=== PATIENT | female | born 1975 | race Caucasian/White ===

== ENCOUNTER 2025-05-08 06:29 | Inpatient (IN) | payer MEDICARE, OTHER, SELFPAY ==
[2025-05-07 23:30] VITALS: BP 181/106; BMI 22.1
[2025-05-07 23:35] VITALS: BP 181/106
[2025-05-07 23:39] VITALS: BP 201/159
[2025-05-07 23:41] VITALS: BP 169/113
[2025-05-07 23:56] LABS: Hematocrit 37.5 % (37.0-47.0); Hemoglobin 13.2 g/dL (12.0-16.0); Mean Corp Hgb Conc. 35.2 g/dL (33.0-37.0); Mean Corpuscular Volume 79.8 fL (81.0-99.0); Nucleated Red Blood Cells % 0 %; Platelet Count 342 10^3/uL (130-400); Red Cell Dist. Width 13.6 % (11.5-14.5)
[2025-05-08] VITALS (45 sets, daily range): BP systolic 134–196; BP diastolic 67–149; BMI 23.6
[2025-05-08 00:12] LABS: Blood Urea Nitrogen 8 mg/dl (7-17); Calcium 9.7 mg/dl (8.4-10.2); Carbon Dioxide 23 mmol/L (22-30); Chloride 103 mmol/L (98-107); Estimated Creatinine Clearance 82 ml/min; Glucose 162 mg/dl (70-99); Potassium 3.3 mmol/L (3.5-5.1); Sodium 137 mmol/L (135-145); eGFR > 60.00
[2025-05-08] MEDS: NSS 1000 IV (00:41)
--- NOTE | 2025-05-08 01:30 | EDRN ---
Went in to try to get urine specimen from patient, she said she could go, while getting her ready to provide sample she appeared wet, when asked if she went already she stated yes but she could go again, patient placed on bed rivera, then yelled that
she couldn't go, patient was taken off of wet things and given new linen, aware if she needs to urinate again, we need a sample
--- NOTE | 2025-05-08 02:30 | EDRN ---
Staff from [facility] came out of room stating patient seizing, when entering room, patient is having tonic clonic seizure, patient airway suctioned, patient's vitals are stable, however patient is postictal at this time, verbal order to give 5mg Valium
IV. Patient was incontinent to urine, patient was changed at this time, patient was straight cathed to obtain a urine specimen as well at this time, will continue to monitor.
[2025-05-08] MEDS: VALIUM INJECTION 5 MG IV ×2 (02:39→04:05)
--- NOTE | 2025-05-08 03:38 | ED.GENMED ---
History of Present Illness
General
Chief Complaint: Withdrawal Symptoms
Source: patient
Exam Limitations: none
Time Seen by Provider: 05/07/25 23:34
Nursing documentation reviewed up to this point in time: agreed with
History of Present Illness
History of Present Illness:
Note:
CHIEF COMPLAINT(S)
The patient was noted to be disoriented and vomiting earlier in the day. Patient is a resident of [facility]. She has been there for about a day. She admits to using opioids 1 day ago.
HISTORY OF PRESENT ILLNESS
The patient is a 49-year-old female who was brought in after being found disoriented and vomiting. She was noted to have an altered mental state, described as being unaware of her surroundings and staring blankly. The episode of disorientation
reportedly resolved approximately 10 minutes after onset. Earlier in the day, the patient experienced episodes of vomiting. There is a mention of a possible withdrawal state, as the patient appears to have history involving opioid use. The patient
denied any recent fall or head injury and reports feeling normal post episode.
SOCIAL DETERMINANTS AFFECTING HEALTH
The patient has a history of opioid use, which may be impacting her current health status.
MEDICATIONS
The patient is on opioids, though specific details on dosages and additional medications are not provided.
PROBLEM LIST
- Acute: Disorientation, vomiting
- Chronic: Opioid use disorder
DIFFERENTIAL DIAGNOSIS
The Differential Diagnosis includes, in no particular order and is not limited to:
1. Opioid withdrawal
2. Opioid intoxication
3. Dehydration
4. Electrolyte imbalance
5. Infectious cause (e.g., gastroenteritis)
6. Metabolic disturbance
7. Central nervous system event (e.g., seizure, transient ischemic attack)
8. Medication side effect
9. Anxiety or panic attack
10. Alcohol withdrawal
CARE-UPDATE
05/08/25 - 03:39
The patient experienced a seizure episode. Administered an additional dose of Valium as per protocol.
Disposition:
SUMMARY OF ENCOUNTER
The patient, a 49-year-old female, was brought to the emergency department from a correctional facility presenting with symptoms suggestive of opioid withdrawal. During her stay, she experienced two separate seizures. The seizures were temporarily
controlled with diazepam. An emergency CT scan of the head was conducted, and no acute intracranial process was identified. Additionally, an electroencephalogram (EEG) was performed, which did not show any seizure activity. Due to her current
symptoms and the development of new-onset seizures, the decision was made to admit the patient for further observation and management.
DISPOSITION
Admit.
ASSESSMENT
The patient is experiencing symptoms consistent with acute opioid withdrawal and new-onset seizures.
EMERGENCY TREATMENTS ADMINISTERED
Diazepam (Valium) was administered to control seizures.
INDEPENDENT REVIEW OF LABS AND INTERPRETATION OF TESTS
My independent interpretation of the CT scan of the head shows no acute intracranial process.
MEDICAL DECISION MAKING
-Complexity of Data Reviewed: Chronic conditions affecting care include the patients known opioid use disorder. Differential diagnosis considerations included opioid withdrawal, opioid intoxication, electrolyte imbalance, and central nervous system
event (e.g., seizure).
-Data:
Category 1: I independently reviewed the CT scan of the head.
Category 2: None discussed.
Category 3: None discussed.
-Risk: The patients presentation with seizures and history of opioid use indicate a high risk of complications, necessitating admission for monitoring and further management.
DIAGNOSIS
- Opioid withdrawal (ICD-10: F11.23)
- Seizures, unspecified (ICD-10: R56.9)
Phy Exam
General Physical Exam
General Presentation: moderate distress
General age: appears older than age
General Skin: warm and dry
General Habitus: debilitated, frail and poor hygiene
General Mental: appears intoxicated and confused
General Hydration: appears well hydrated
ENT Exam
ENT Exam: EOMI, pharynx normal, neck supple and normocephalic
Eye Exam
Eye Exam: PERRL, cornea clear and conjunctiva normal
Cardiovascular Exam
Cardiovascular Exam: regular rate/rhythm and no edema
Pulmonary Exam
Pulmonary Exam: no respiratory distress and no stridor
Gastrointestinal Exam
Gastrointestinal Exam: normal bowel sounds, non tender, soft, no organomegaly, no pulsatile mass and non distended
Neurological Exam
Neurological Exam: confused
Musculoskeletal Exam
Musculoskeletal Exam: full ROM
Skin Exam
Skin Exam: normal color, warm/dry, no rash and no petechia
Psychiatric Exam
Psychiatric Exam: anxious and labile
Course
Orders/Labs/Results
Orders:
Orders
05/07/25 23:38
Electrocardiogram (*1) Urgent
Reason for Study: Other
Other Reason for Exam: change in mental status
EKG- Treatment ONCE
05/07/25 23:39
Basic Metabolic Panel Urgent
Complete Blood Count/With Diff Urgent
05/07/25 23:47
Urine Drug Abuse Screen Urgent
Date Specimen was Collected: 05/08/25
Time Specimen was Collected: 00:38
05/08/25 00:30
0.9% Sodium Chloride 1000 ml [Nss] 1,000 ml IV BOLUS
05/08/25 00:56
CT Head W/o Iv Contrast Urgent
Comment:
Reason For Exam: ams
05/08/25 02:26
diazePAM [Valium Injection] 10 mg .ROUTE .STK-MED ONE
05/08/25 02:38
Fentanyl, Urine Urgent
05/08/25 02:39
diazePAM [Valium Injection] 5 mg IV NOW STA
05/08/25 03:35
diazePAM [Valium Injection] 5 mg IV NOW STA
05/08/25 03:38
Ceribell [Rapid Point of Care EEG (ED/ICU ONLY)] Q1H
Indications for use:: Altered Mental Status
05/08/25 03:40
diazePAM [Valium Injection] 10 mg .ROUTE .STK-MED ONE
Abnormal Lab Results
05/07/25 05/08/25
23:39 02:38
MCV 79.8 L fL
(81.0-99.0)
Abs Immat Gran (auto) 0.1 H 10^3/uL
(0-0.05)
Absolute Neuts (auto) 9.3 H 10^3/uL
(1.4-6.5)
Absolute Lymphs (auto) 1.1 L 10^3/uL
(1.2-3.4)
Neutrophils % 86.7 H %
(42.2-75.2)
Lymphocytes % 10.0 L %
(20.5-51.1)
Potassium 3.3 L mmol/L
(3.5-5.1)
Glucose 162 H mg/dl
(70-99)
Urine Fentanyl Screen Positive H
(Negative)
Urine Cocaine Screen Positive H
(Negative)
05/07/25 23:39
05/07/25 23:39
Vital Signs
Initial and Last Documented VS:
Initial Vital Signs
Temp Pulse Resp BP Pulse Ox
98.3 F 51 14 181/106 99
05/07/25 23:30 05/07/25 23:30 05/07/25 23:30 05/07/25 23:30 05/07/25 23:30
Last Documented Vital Signs
Temp Pulse Resp BP Pulse Ox
98.3 F 77 19 187/93 98
05/07/25 23:30 05/08/25 00:30 05/08/25 00:30 05/08/25 00:00 05/08/25 03:39
*Radiology
Radiology exam reviewed: radiology read reviewed
*Pulse Oximetry
SaO2: 98
Oxygen Mode of Delivery: Room air
Patient hypoxic: no
*Critical Care Note
Total Time (30-74mins, 75-104mins- exclusive of procedures): 45 (Critical care statement: A total of 45 minutes of critical care time was provided for this patient. This time is separate from time utilized to perform the aforementioned documented
procedures. Aggregate critical care time includes only time during which I was engaged in work directl)
Update Note
Update Note:
NAME: BRET GARZA
DATE OF EXAM: 05/08/2025
Patient No: [id number]
Physician: MIK^Estephania
Date of : 1975
Past Medical History (entered by Technologist):
Reason For Exam (entered by Technologist):
Other Notes (entered by Technologist): Altered mental status
No prior
Additional Information (per [facility] Radiologist):
CT head without IV contrast
IMPRESSION:
No hemorrhage, hydrocephalus, or herniation. Consider MRI for further assessment if clinically indicated.
Right-sided paranasal sinus disease.
Case finalized on 05/08/25 04:42 EDT
Jeff Urena M.D.
This report has been electronically signed and verified by the Radiologist whose name is printed above.
ED Attending Note
-
Portions of this chart may have been created with voice recognition software.� Occasional wrong word or��sound alike� substitutions may have occurred due to the inherent limitations of voice recognition software.
Discharge Plan
Departure
Patient Disposition: Admit
Date of Disposition: 05/08/25
Time of Disposition: 04:55
Admit to: IMU
Presentation/result/management discussed w/ accepting MD/DO: Hospitalist
Condition: Fair
Discharge Problem:
Seizure, Opioid abuse with withdrawal
Referrals:
[facility] [Family Provider, General]
Interventions
Interventions:
*Risk Screen - Suicide Last Done: 05/07/25 23:30
*General Assessment Last Done: 05/07/25 23:30
*Neglect/Abuse Screening Last Done: 05/07/25 23:30
*ED- Fall Risk Assessment Last Done: 05/07/25 23:30
*ED Influenza Vaccine History Last Done: 05/07/25 23:30
ED- Neurological Assessment Last Done: 05/08/25 00:31
ED-Psychological Assessment Last Done: 05/08/25 00:31
Discharge Date and Time
Print Language: TELUGU
[2025-05-08 05:29] LABS: Acetaminophen < 10 ug/ml (10-30); Salicylate < 1.0 mg/dl (2.0-20.0)
--- NOTE | 2025-05-08 06:04 | HPS.HSE ---
Family Physician
-
Family Physician: Facility [facility]
Chief Complaint
-
Altered Mental Status, Seizure
History of Present Illness
Patient is a 49y F with PMH significant for substance use disorder who presents [facility] ED from local [facility] for evaluation of altered mental status. Patient was incarcerated early Friday AM. She complained of nausea and was treated with a dose of
IM Zofran. She was described as agitated and anxious at he [facility]. Patient was found this evening to be confused, disoriented with N/V. She as brought to the ED for further evaluation.
During eval in the ED, patient had witnessed episode of tonic-clonic seizure activity. She was treated with Valium with improvement.
She has continued to have some 'twitching' or fasciculations since that time. Ceribell was placed which showed no evidence of seizure activity after 1 hour.
At the time of my examination patient remains lethargic. She responds to verbal and noxious stim. She attempts to answer questions with soft / slurred speech.
patient admits to using 2 bags of heroin / fentanyl per day. last use was Friday. She denies any cocaine use though this was seen on UDS.
She denies alcohol - though prior [facility] records (from previous incarcerations) indicate significant history of alcohol use as well.
Patient denies any prior seizures.
Medical History
Past Medical History
Past Medical History: Reports Other
Additional Past Medical History:
Polysubstance Use Disorder
Past Surgical History: Reports Other
Additional Past Surgical History:
None Known
Social History
Tobacco: Smoker
Alcohol: Other (Patient denies - though prior records suggest up to 12 beers daily.)
Drug: Other (Daily IV fentanyl / heroin use.)
Family History
Family History: Unable to Obtain
Allergies / Home Medications
Allergies reflects when Allergies were last updated in [employer].
Home Medications with original date entered in [employer]
Allergy/Medication List:
On no chronic medications.
If medication reconciliation has not been performed, why?: Medication List N/A
Review of Systems
-
History Source: Patient (limited ROS due to lethargy.)
A 12 point ROS was completed and negative except as noted: No
Respiratory: Denies Cough or Trouble Breathing
Cardiac: Denies Chest Pain or Palpitations
Abdomen/GI: Reports Nausea and Vomiting; Denies Abdominal Pain
Neurological: Denies Dizzy or Headache
Physical Exam
Vital Signs
Vital Signs
Temp Pulse Resp BP Pulse Ox
98.3 F 77 19 187/93 98
05/07/25 23:30 05/08/25 00:30 05/08/25 00:30 05/08/25 00:00 05/08/25 03:39
Physical Exam
General: Other (Chronically ill-appearing 49y F who appears older than stated age.)
HEENT: Other (Dry MM, poor / missing dentition. Neck supple.)
Respiratory: Clear; No Wheezes, Rales or Rhonchi
Cardiac: S1/S2, Regular Rhythm and Murmur (III/ DELFINO to RUSB.)
GI: Soft, Non Tender, Non Distended and Normal Bowel Sounds
Musculoskeletal: No Clubbing, No Cyanosis and No Edema
Skin: Other (Chronic scarring / skin changes x 4 extremities from IV injection sites / prior infections / etc.)
Neuro: Other (Lethargic, mildly tremulous. Responds to loud verbal stimuli and noxious stimuli.)
Laboratory Results
-
05/07/25 23:39
05/07/25 23:39
Impression/Plan
-
A/P: Patient is a 49y F with PMH significant for polysubstance use disorder who presents to ED from [facility] for evaluation of N/V and altered mental status. Noted to have seizure here in the ED.
Polysubstance Use Disorder
Withdrawal Syndrome(s)
Seizure Activity (witnessed) secondary to the above
- Admit to ICU for further evaluation and treatment.
- Given apparent seizure activity and previously documented history of EtOH use disorder - will proceed with EtOH withdrawal protocols.
- Phenobarb taper, Valium as needed for MSAS scores, seizure activity, etc.
- CT head in the ED was unremarkable.
- Follow COWS as well and treat any evident withdrawal symptoms with buprenorphine.
- UDS in the ED was positive for fentanyl and cocaine (though patient denies cocaine use as well). EtOH was negative.
- Supportive care with IVFs, antiemetics, etc.
- Kiss Setter Hand evaluation for additional recommendations.
- Encourage cessation of illicit substance use.
Ventricular Bigeminy
Prolonged QTc
- Patient with bigeminy on EKG on arrival - no prior tracings for comparison.
- QTC prolonged at 505. Received Zofran at [facility] prior to arrival.
- Monitor on tele. Avoid QT prolonging medications.
Murmur
- Check Echo given cardiac murmur and history of IVDA.
DVT Prophylaxis: SCDs
Code Status: Full
--- NOTE | 2025-05-08 06:45 | CON.INTV ---
Consultation
Consultation Request
Date/Time Consultation Requested: 05/08/2025
Date/Time Consultation Performed: 05/08/2025
Medical History
-
Chief Complaint: Altered mental status
History of Present Illness:
Patient is a 49-year-old female was brought from [facility] for altered mental status and vomiting. Patient is lethargic during my evaluation and unable to provide a reliable history. Information mostly obtained from records as well as discussion with
other healthcare providers. Reportedly patient was brought in as she was found confused and was having vomiting. Reported history of opioid use with recent incarceration with concern for withdrawal symptoms. In the emergency room, patient had a
witnessed tonic-clonic seizure which was treated with Valium and subsequently improvement. Cerebella was placed which was not suggestive of ongoing seizure activity. Subsequently patient was lethargic with slurred speech. Reported history of 2
bags of heroin/fentanyl use daily. Prior history of alcohol also however per most recent alcohol screen has been negative. Urine tox and also positive for cocaine. In view of altered mental status, severe withdrawal and seizure, patient is being
admitted to the ICU and grappler consultation was requested for further input.
Past Medical History
Past Medical History: Reports Other
Additional Past Medical History:
Polysubstance Use Disorder
Past Surgical History: Reports Other
Additional Past Surgical History:
None Known
Social History
Tobacco: Smoker
Alcohol: Other (Patient denies - though prior records suggest up to 12 beers daily.)
Drug: Other (Daily IV fentanyl / heroin use.)
Family History
Family History: Unable to Obtain
Allergies / Home Medications
Allergies
Allergy/AdvReac Type Severity Reaction Status Date / Time
No Known Allergies Allergy Unverified 05/07/25 23:38
Review of Systems
-
Unable to Obtain full review of systems at this time due to: Other (Unable to obtain due to encephalopathy)
Vitals / Labs / Diagnostic Testing
Vital Signs
Temp Pulse Resp BP Pulse Ox
98.3 F 107 30 179/110 97
05/07/25 23:30 05/08/25 06:15 05/08/25 06:15 05/08/25 05:53 05/08/25 06:15
Lab Data
05/07/25 23:39
05/07/25 23:39
Diagnostic Testing:
Physical Exam
-
HEENT: Normocephalic
Cardiovascular: S1/S2
Respiratory: Clear and Non-Labored Respirations
GI: Soft and Non Distended
Neurology: Other (Drowsy, wakes up with stimulation, protecting airways)
Skin: Warm
General: Comfortable
Assessment
-
#1. Polysubstance use with severe withdrawal
- Patient noted to have tonic-clonic activity in the emergency room, suspect withdrawal related seizures
- Reported history of heroin use, urine tox also positive for cocaine. Prior history of alcoholism.
- Continue thiamine replacement. Remote h/o alcoholism, patient denies current use, alcohol screen negative, will d/c Phenobarbital/MSAS
- CT head unremarkable. Portable EEG in the emergency room was not suggestive of nonconvulsive seizure.
- Initiate buprenorphine when able to take, as needed IV fentanyl in the meantime. Avoid beta-blockers in view of urine tox positive for cocaine
- Continue IV fluids, monitor and replace electrolytes
- Precedex infusion as needed
- If mental status worsens or patient develops additional seizure, will need to proceed with intubation and mechanical ventilation
- Monitor renal function. Check VBG and CK.
- More awake, protecting airways well, still encephalopathy, suspect related to withdrawal as well as postictal state.
#2. QTc prolonged.
- Replace low K and Mg, f/u lab work
- Serial EKG. Tele monitoring
#3. Fever.
- Blood cultures x 2, chest x-ray, UA
- Monitor off antibiotics for now
Critical Care time 65 mins -- The patient is admitted for acute critical illness for the treatment of vital organ failure and/or prevention of further life-threatening conditions. Total care includes time spent in review of history, physical exam,
medications, hemodynamic/ventilator parameters, laboratory data, imaging and discussion with house staff, pharmacy, respiratory therapy, safety and security manager, and nursing.
Data:
CT Head: 04/2025: No acute intracranial abnormality.
CXR 04/2025: Unremarkable
[2025-05-08] MEDS: TRANDATE 10 MG IV (06:56)
--- NOTE | 2025-05-08 07:05 | EDRN ---
Spoke with Dr. Ledezma about patient's blood pressure continuing to stay elevated, medications ordered and given for patient.
[2025-05-08] MEDS: APRESOLINE 10 MG IV ×2 (07:14→13:53)
[2025-05-08 07:22] LABS: Magnesium 1.5 mg/dl (1.6-2.3)
[2025-05-08 07:55] LABS: Glucose - Point of Care 145 mg/dl (70-99)
[2025-05-08] MEDS: FOLVITE PO (08:15)
[2025-05-08] MEDS: PROTONIX IV 40 MG IV (08:18)
[2025-05-08] MEDS: LR 1000 IV ×3 (08:18→21:28)
[2025-05-08] MEDS: KCL 270 MEQ IV (08:18)
[2025-05-08] MEDS: MAGNESIUM SULFATE 50 IV (08:18)
[2025-05-08] MEDS: NSS (PRESERVATIVE FREE) 10 ML IV (08:18)
[2025-05-08 08:27] LABS: APTT 31.2 Sec (23.4-35.0); INR 0.99; PT 13.4 Sec (11.4-14.6)
[2025-05-08] MEDS: THIAMINE INJECTION 200 MG IV ×3 (08:27→23:51)
[2025-05-08 08:29] LABS: Magnesium 1.6 mg/dl (1.6-2.3)
--- NOTE | 2025-05-08 09:30 | PTCARENOTE ---
Received pt from ER into ICU rm 3365 @ approx 0800. pt. max assisted from stretcher to bed. Pt. lethargic, awakens to verbal stimuli; tracks. Does not follow commands but able to move all extremities; denies pain. Oriented to self/situation;
required reorientation to place/time. COWS-6; relayed to Dr. Shields; MSAS cancelled per MD. Neuro checks completed per orders- see flow sheet; seizure precautions maintained. Cerebell off per orders. ST on monitor w prolonged QT. SpO2 98% on RA.
Auscultated dim breath sounds throughout; poor effort; tachypneic. +BS, NPO d/t mentation. Inc b/b @ x's. Compete hygiene given. L knee scabbed- REGIONAL OPERATIONS DIRECTOR. Pt. w healed dent-like skin patches. #20 L FA patent, dressing c/d/i. #20 L wrist inserted.
Initiated LR @ 150mL/hr w K+ and Mag repletion- see SEP. Blood work drawn and sent to lab; awaiting results. CXR completed @ bedside. L ankle chained to bed per correctional policy; [facility] guards x2 @ bedside.
--- NOTE | 2025-05-08 09:47 | W.PN.HOSP.TC ---
Today's Communication/Plan
-
Continue WD protocol. K low, check and replete as needed. Check Mg
Assessment / Plan
Assessment / Plan
49y F with PMH significant for polysubstance use disorder who presents to ED from [facility] for evaluation of N/V and altered mental status. Noted to have seizure here in the ED.
1. Polysubstance Use Disorder with Withdrawal Syndrome(s) and Seizure Activity (witnessed) secondary to the above
- Given apparent seizure activity and previously documented history of EtOH use disorder - will proceed with EtOH withdrawal protocols.
- Phenobarb taper, Valium as needed for MSAS scores, seizure activity, etc.
- CT head in the ED was unremarkable.
- Follow COWS as well and treat any evident withdrawal symptoms with buprenorphine.
- UDS in the ED was positive for fentanyl and cocaine (though patient denies cocaine use as well). EtOH was negative.
- Supportive care with IVFs, antiemetics, etc.
- Training And Development Head evaluation for additional recommendations.
- Encourage cessation of illicit substance use.
2. Ventricular Bigeminy with Prolonged QTc
- Patient with bigeminy on EKG on arrival - no prior tracings for comparison.
- QTC prolonged at 505. Received Zofran at [facility] prior to arrival.
- Monitor on tele.
Avoid QT prolonging medications.
3. Murmur
- Check Echo given cardiac murmur and history of IVDA.
DVT Prophylaxis: SCDs
Code Status: Full
Anticipated Discharge: > 48 hours
Subjective/Interval History
-
Date of Service: May 08, 2025
Confused and sedated
Objective Data
-
Labs:
Laboratory Results
05/07/25 05/08/25
23:39 07:59
WBC 10.8
Hgb 13.2
Hct 37.5
Plt Count 342
PT 13.4
INR 0.99
APTT 31.2
Sodium 137
Potassium 3.3 L
Chloride 103
Carbon Dioxide 23
BUN 8
Creatinine 0.6
Glucose 162 H
Calcium 9.7
Vital Signs:
Vital Signs
Temp Pulse Resp BP Pulse Ox
98 F 117 28 165/112 98
05/08/25 07:47 05/08/25 09:30 05/08/25 09:30 05/08/25 09:30 05/08/25 09:30
I&O
05/07/25 05/08/25 05/09/25
06:59 06:59 06:59
Intake Total 485.0 / 485.0
Balance 485.0 / 485.0
Review of Systems
-
Unable to obtain full review of systems at this time due to: Acuity
History Source: Patient
Physical Exam
-
General: Well Developed, Well Nourished, No Apparent Distress and Appears Chronically Ill
HEENT: Normocephalic, Nose Appears Normal and Ears Appear Normal; Negative Good Dentition
Respiratory: Clear to Auscultation
Cardiac: Tachycardic
GI: Soft, Nontender and Nondistended
Musculoskeletal: No Clubbing, No Cyanosis and No Edema
Skin: Warm and Dry
Neuro: Negative Awake, Alert, Oriented or AO x 3
Psych: Confused
--- NOTE | 2025-05-08 10:19 | CM ---
CM reviewed chart. Attempted to meet with pt at bedside to complete IA. Pt noted to be confused and lethargic.
Spoke with [facility] staff and RN. Pt was Iw/AMB and oriented prior to admit to hospital.
PMH of substance abuse w/last use Sunday 05/06.
Presented from [facility] for change in mental status, confusion, disorientation, N/V on Monday 05/07.
Pt with witnessed tonic-clonic seizure in ER treated w/valium w/improvement.
Dispo: Return to [facility] when medically stable. They will provide transport.
Two CO's remain at bedside.
CM/SW will continue to follow to ensure a safe and timely dc.
[2025-05-08] MEDS: SUBUTEX 8 MG SL ×2 (12:12→13:53)
--- NOTE | 2025-05-08 12:22 | PTCARENOTE ---
pt. more awake than on admit. Remains drowsy, opens eyes to verbal stim; follows simple commands and able to move all extrem. COWS Q4h per orders- see flow sheet/MAR. Assisted w active repositioning in bed. L ankle remains shackled to bed w [facility]
guards @ bedside. Safe environment maintained.
[2025-05-08 12:23] LABS: Venous Blood Gas B.E. 2.2 mmol/L (-4 to +4); Venous Blood Gas O2 Sat % 99.7 %
[2025-05-08 12:36] LABS: ALT (SGPT) 13 U/L (0-35); AST (SGOT) 20 U/L (14-36); Albumin 4.7 g/dl (3.5-5.0); Alkaline Phosphatase 113 U/L (38-126); Total Protein 8.3 g/dl (6.3-8.2)
[2025-05-08] MEDS: ZANAFLEX 2 MG PO ×2 (14:18→20:16)
[2025-05-08] MEDS: CATAPRES 0.1 MG PO (16:11)
[2025-05-08] MEDS: LOVENOX 40 MG SC (17:18)
--- NOTE | 2025-05-08 18:36 | PTCARENOTE ---
No changes in pt. assessment from previous. COWS completed per orders- see flow sheet/MAR. Safe environment maintained.
--- NOTE | 2025-05-08 18:38 | W.RAPID.EEG ---
Rapid EEG
-
Procedure Date: 05/08/25
Results:
IMPRESSION:
No evidence of status epilepticus
Recording Information:
Diagnostic Recording Time: 01:14:05 (74 minutes)
Recording 1:
Start Time: May 08, 2025 04:00 AM End Time: May 08, 2025 05:14 AM
Recording Technique: This EEG was obtained using a 10 lead, 8 channel system positioned circumferentially without any parasagittal coverage (rapid EEG). Computer selected EEG is reviewed as well as background features and all clinically significant
events. Clarity algorithm utilized and implemented to provide analysis of underlying activity and seizure detection used to facilitate reading. ICD-10 Code GH67A13
Clinical History: BRET GARZA is a 49 year old Prior Seizure patient undergoing EEG to screen for non-convulsive status epilepticus.
Disclaimer: EEG findings should be interpreted in the context of clinical history and other tests. A normal EEG does not rule out epilepsy or other conditions, and an abnormal EEG is not diagnostic on its own. Technical factors may affect
interpretation. Clinical context is required.
--- NOTE | 2025-05-08 20:00 | PTCARENOTE ---
Patient received in bed, drowsy but arousable,oriented x2. CORMIER, pupils equal and reactive. Sinus tachycardia with pQT on monitor, afebrile, blood pressure as documented. weak but palpable pulses noted, trace lower extremity edema noted. Lungs
diminished, pulse ox 98% on room air. Abdomen soft non tender. Purewick draining cloudy yellow urine. #20 g in LFA with IVF infusing as ordered, #20 g in left wrist flushed and patent. Old scars noted, left knee with scab, Foam dressings applied
on left ankle due to shackle. 2 guards at bedside. Seizure precautions maintained
[2025-05-09] VITALS (18 sets, daily range): BP systolic 106–175; BP diastolic 71–125; PULSE 94; O2SAT 98; BMI 23.5
[2025-05-09] MEDS: APRESOLINE 10 MG IV (00:08)
--- NOTE | 2025-05-09 00:15 | PTCARENOTE ---
patient reassessed, remains calm and cooperative. prn apresoline given for blood pressure. no other changes in assessment
[2025-05-09] MEDS: ZANAFLEX 2 MG PO (02:49)
[2025-05-09] MEDS: LR 1000 IV ×2 (03:34→09:43)
[2025-05-09 05:01] LABS: ALT (SGPT) 12 U/L (0-35); AST (SGOT) 32 U/L (14-36); Albumin 4.1 g/dl (3.5-5.0); Alkaline Phosphatase 96 U/L (38-126); Blood Urea Nitrogen 9 mg/dl (7-17); Calcium 9.4 mg/dl (8.4-10.2); Carbon Dioxide 20 mmol/L (22-30); Chloride 108 mmol/L (98-107); Estimated Creatinine Clearance 82 ml/min; Glucose 117 mg/dl (70-99); Magnesium 2.3 mg/dl (1.6-2.3); Potassium 3.5 mmol/L (3.5-5.1); Sodium 135 mmol/L (135-145); Total Protein 7.7 g/dl (6.3-8.2); eGFR > 60.00
[2025-05-09] MEDS: KCL 270 MEQ IV (06:12)
[2025-05-09] MEDS: FOLVITE 1 MG PO (07:35)
[2025-05-09] MEDS: MIRALAX 17 GRAMS TUBE (07:35)
[2025-05-09] MEDS: THIAMINE INJECTION 200 MG IV ×2 (07:36→15:12)
[2025-05-09] MEDS: NSS (PRESERVATIVE FREE) 10 ML IV (07:36)
[2025-05-09] MEDS: PROTONIX IV 40 MG IV (07:36)
--- NOTE | 2025-05-09 08:00 | PTCARENOTE ---
Received pt @ change of shift. Pt. drowsy, awakens to verbal stim; oriented x3; forgetful on exact date but was able to provide month/year. COWS completed per orders- see flow sheet. ST on monitor w prolonged QT. SpO2 98% on RA. +BS, abd soft, nt;
int nausea, no vomiting. NPO ex meds/sips; tolerating; no s/s of asp. Inc b/b. Purewick in place draining cloudy/yellow urine. #20 L FA w LR @ 150mL/hr w K+ rider infusing; #20 L wrist patent, dressing c/d/i. Blood work drawn and sent to lab;
awaiting results. [facility] guards x2 remain @ bedside. L ankle shackled to bed. Safe environment maintained.
[2025-05-09 08:01] LABS: Hematocrit 37.7 % (37.0-47.0); Hemoglobin 13.0 g/dL (12.0-16.0); Mean Corp Hgb Conc. 34.5 g/dL (33.0-37.0); Mean Corpuscular Volume 82.1 fL (81.0-99.0); Platelet Count 302 10^3/uL (130-400); Red Cell Dist. Width 14.2 % (11.5-14.5)
--- NOTE | 2025-05-09 08:14 | W.PN.INTV ---
Today's Communication / Plan
Recommendations
Precedex drip never started
Monitor off antibiotics and follow-up infectious workup (which shows NGTD)
Trend WBC
Monitor BP + HR
Try to avoid beta-blockers if possible given cocaine positive on urine toxicology
Continue microdosing Subutex
Supportive medications via COWS
Patient is stable for downgrade out of ICU to telemetry. No additional recommendations at this time. Custody Assistant/Pulmonary service will now sign off. Please reconsult if there are any additional questions/concerns, or if patient's respiratory
status deteriorates.
Assessment
-
#1. Polysubstance use with severe withdrawal
- Patient noted to have tonic-clonic activity in the emergency room, suspect withdrawal related seizures
- Reported history of heroin use, urine tox also positive for cocaine. Prior history of alcoholism.
- Continue thiamine replacement. Remote h/o alcoholism, patient denies current use, alcohol screen negative, will d/c Phenobarbital/MSAS
- CT head unremarkable. Portable EEG in the emergency room was not suggestive of nonconvulsive seizure.
- Continue microdose protocol with buprenorphine; Avoid beta-blockers if possible in view of urine tox positive for cocaine
- Will DC IVF today as patient is now okay to start diet; monitor and replace electrolytes
- Precedex infusion never started, will DC now
- Monitor renal function. Blood gas showed mild respiratory alkalosis; CK was WNL at 51
- Today, patient is awake, alert and answering all questions
#2. QTc prolonged.
- Replete K>4, Mg>2
- Tele monitoring
#3. Fever.
- Blood cultures x 2 show NGTD
- UCx shows NGTD
- No WBC; no fever since morning of 05/08
- Monitor off antibiotics for now
Patient is stable for downgrade out of ICU to telemetry. No additional recommendations at this time. Custody Assistant/Pulmonary service will now sign off. Thank you for allowing us to be involved in the care of this patient. Please reconsult if there
are any additional questions/concerns, or if patient's respiratory status deteriorates.
Data:
CT Head: 04/2025: No acute intracranial abnormality.
CXR 04/2025: Unremarkable
Total time spent today was 56 minutes for this encounter. Time includes reviewing laboratory test/imaging results, reviewing pertinent medical records, obtaining and reviewing medical history, performing an appropriate exam, ordering medications,
tests and procedures. Time also includes documentation of this encounter, coordinating patient care and communicating with other healthcare professionals. Total time does not include separately billed tests performed on this date of service.
Subjective Dataa
Subjective Data
Date of Service:
Date of Service: May 09, 2025
Chief Complaint: Custody Assistant Follow Up
Subjective:
Patient was seen and evaluated this morning. Precedex was not started overnight. Resting in bed in no acute distress with patrol police sergeant at bedside. Awake, alert in no acute distress. Heart rate 105, BP 158/107 and saturating 99% on room air.
She currently denies tremor, nausea, abdominal pain, chest pain, SOB.
Review of Systems
General: Other (Negative unless mentioned above)
Objective Data
Data Reviewed
Vital Signs / I&O / Oxygen:
Vital Signs
Temp Pulse Resp BP Pulse Ox
98 F 101 17 158/108 100
05/09/25 07:31 05/09/25 07:00 05/09/25 07:00 05/09/25 07:00 05/09/25 07:55
Intake and Output
05/08/25 05/09/25 05/10/25
06:59 06:59 06:59
Intake Total 4040.0 / 4190.0 540 / 540
Output Total 1000 / 1000
Balance 3040.0 / 3190.0 540 / 540
SaO2 100
Physical Exam
General: Respiratory Distress (negative), Comfortable, Chills (negative) and Sweats (negative)
HEENT: Normocephalic and Anicteric
Cardiovascular: S1-S2, Peripheral Edema (negative) and Other (Slightly tachycardic)
Respiratory: Clear, Wheeze (negative) and Non-Labored Respirations
GI: Soft, Non Distended, Non Tender and Normal Bowel Sounds
Neurology: Awake, Alert, Oriented and Tremors (negative)
Skin: Warm, Dry and Cyanosis (negative)
Labs/Micro/Reports
Lab Data
05/09/25 07:46
05/09/25 04:33
[2025-05-09] MEDS: SUBUTEX 16 MG SL (09:43)
[2025-05-09] MEDS: CATAPRES 0.2 MG PO ×3 (11:20→21:16)
--- NOTE | 2025-05-09 13:54 | PTCARENOTE ---
pt. assisted OOB to chair x1 @ approx 1200; remains in chair; tolerating activity. Diet advanced up to regular; also tolerating meals. Cooperative. [facility] guards remain @ bedside. L ankle shackled to chair. Safe environment maintained.
--- NOTE | 2025-05-09 14:59 | CM ---
In custody of [facility]. Discharge POC: Return to [facility].
--- NOTE | 2025-05-09 15:24 | PTCARENOTE ---
Report given to 3W RN and pt. transported via stretcher to rm [phone] on cardiac surgeon w belongings and [facility] guard x2/shackled to stretcher. No further needs from this RN.
--- NOTE | 2025-05-09 15:50 | W.PN.HOSP.TC ---
Today's Communication/Plan
-
Subutex
benzo prn
clonidine
monitor withdrawal symptoms
Assessment / Plan
Assessment / Plan
49y F with PMH significant for polysubstance use disorder who presents to ED from [facility] for evaluation of N/V and altered mental status. Noted to have seizure here in the ED.
#Polysubstance Use Disorder with Withdrawal Syndrome(s) and ?Seizure Activity
- Heroin, Fentanyl, and Cocaine use
- Continue withdrawal protocol, benzodiazepines
- Valium as needed for MSAS scores, seizure activity, etc.
- Subutex prn
- CT head in the ED was unremarkable.
- Avoid BB
- Encourage cessation of illicit substance use.
#Ventricular Bigeminy with Prolonged QTc
- Patient with bigeminy on EKG on arrival - no prior tracings for comparison.
- QTC prolonged at 505. Received Zofran at [facility] prior to arrival.
- Monitor on tele.
Avoid QT prolonging medications.
#Hypertension
-clonidine
# Murmur
-No endocarditis on ECHO
DVT Prophylaxis: lovenox
Code Status: Full
Anticipated Discharge: 24 - 48 hours
Subjective/Interval History
-
Date of Service: May 09, 2025
No acute events overnight, alert and oriented x 3
Objective Data
-
Labs:
Laboratory Results
05/09/25 05/09/25
04:33 07:46
WBC Cancelled 9.9
Hgb Cancelled 13.0
Hct Cancelled 37.7
Plt Count Cancelled 302
Sodium 135
Potassium 3.5
Chloride 108 H
Carbon Dioxide 20 L
BUN 9
Creatinine 0.6
Glucose 117 H
Calcium 9.4
Total Bilirubin 1.2
AST 32
ALT 12
Alkaline Phosphatase 96
Vital Signs:
Vital Signs
Temp Pulse Resp BP Pulse Ox
97.9 F 104 16 136/82 99
05/09/25 15:37 05/09/25 15:37 05/09/25 15:37 05/09/25 15:37 05/09/25 15:37
I&O
05/08/25 05/09/25 05/10/25
06:59 06:59 06:59
Intake Total 4040.0 / 4190.0 2310 / 2310
Output Total 1000 / 1000 350 / 350
Balance 3040.0 / 3190.0 1959 / 1959
Review of Systems
-
History Source: Patient
All other systems: Reviewed and negative
Data Reviewed
-
Diagnostic Radiology: Report Reviewed by me
CT Scan: Report Reviewed by me
Labs: Labs Reviewed by me
--- NOTE | 2025-05-09 16:45 | PTCARENOTE ---
1525- Pt received from ICU via stretcher accompanied by 2 correctional officers and transport staff. No distress noted or reported at this time.
[2025-05-09] MEDS: LOVENOX 40 MG SC (17:36)
[2025-05-10] MEDS: THIAMINE INJECTION 200 MG IV ×2 (00:39→08:16)
[2025-05-10 03:00] VITALS: BP 113/78
[2025-05-10 06:00] VITALS: BMI 25.2
[2025-05-10 06:30] LABS: Hematocrit 34.0 % (37.0-47.0); Hemoglobin 11.7 g/dL (12.0-16.0); Mean Corp Hgb Conc. 34.4 g/dL (33.0-37.0); Mean Corpuscular Volume 84.0 fL (81.0-99.0); Platelet Count 232 10^3/uL (130-400); Red Cell Dist. Width 14.1 % (11.5-14.5)
[2025-05-10 06:56] LABS: ALT (SGPT) < 10 U/L (0-35); AST (SGOT) 12 U/L (14-36); Albumin 3.0 g/dl (3.5-5.0); Alkaline Phosphatase 73 U/L (38-126); Blood Urea Nitrogen 17 mg/dl (7-17); Calcium 9.0 mg/dl (8.4-10.2); Carbon Dioxide 27 mmol/L (22-30); Chloride 107 mmol/L (98-107); Estimated Creatinine Clearance 70 ml/min; Glucose 92 mg/dl (70-99); Magnesium 1.9 mg/dl (1.6-2.3); Potassium 3.7 mmol/L (3.5-5.1); Sodium 134 mmol/L (135-145); Total Protein 5.7 g/dl (6.3-8.2); eGFR > 60.00
[2025-05-10 07:30] VITALS: BP 104/70
[2025-05-10] MEDS: CATAPRES 0.2 MG PO (08:17)
[2025-05-10] MEDS: FOLVITE 1 MG PO (08:17)
[2025-05-10] MEDS: MIRALAX 17 GRAMS TUBE (08:18)
[2025-05-10] MEDS: SUBUTEX 16 MG SL (08:24)
--- NOTE | 2025-05-10 10:08 | CM ---
Addendum entered by Patria Card 05/10/25 11:54:
Pt discharged today to [facility] via transport with [facility] guards.
Original Note:
CM following for discharge planning needs. Pt is in custody of [facility] and will return there at discharge.
[facility] Report: [phone]
[facility]
[2025-05-10 11:00] VITALS: BP 104/63
--- NOTE | 2025-05-10 11:49 | W.PN.HOSP.TC ---
Addendum entered and electronically signed by Isaías Osman MD 05/10/25 15:41:
[id number]
Original Note:
Today's Communication/Plan
-
suboxone
clonidine
Assessment / Plan
Assessment / Plan
49y F with PMH significant for polysubstance use disorder who presents to ED from [facility] for evaluation of N/V and altered mental status. Noted to have seizure here in the ED.
#Polysubstance Use Disorder with Withdrawal Syndrome(s) and ?Seizure Activity
- Heroin, Fentanyl, and Cocaine use
- Continue withdrawal protocol, benzodiazepines
- Valium as needed for MSAS scores, seizure activity, etc.
- Subutex - switched over to suboxone 16mg daily
- CT head in the ED was unremarkable.
- Avoid BB
- Encourage cessation of illicit substance use.
#Ventricular Bigeminy with Prolonged QTc
- Patient with bigeminy on EKG on arrival - no prior tracings for comparison.
- QTC prolonged at 505. Received Zofran at [facility] prior to arrival.
- Monitor on tele.
Avoid QT prolonging medications.
#Hypertension
-clonidine
# Murmur
-No endocarditis on ECHO
DVT Prophylaxis: lovenox
Code Status: Full
More than 30 minutes spent in discharge including
Final examination of the patient
Summarizing hospital stay
Instructions for continuing care to all relevant caregivers
Preparation of discharge records, prescriptions, and referral forms
Total time spent (in minutes): 36
Anticipated Discharge: Today
Subjective/Interval History
-
Date of Service: May 10, 2025
No acute events overnight, did not require any as needed medications
Objective Data
-
Labs:
Laboratory Results
05/10/25
05:50
WBC 6.2
Hgb 11.7 L
Hct 34.0 L
Plt Count 232 D
Sodium 134 L
Potassium 3.7
Chloride 107
Carbon Dioxide 27
BUN 17
Creatinine 0.7
Glucose 92
Calcium 9.0
Total Bilirubin 0.5
AST 12 L
ALT < 10
Alkaline Phosphatase 73
Vital Signs:
Vital Signs
Temp Pulse Resp BP Pulse Ox
98.3 F 76 16 104/63 97
05/10/25 11:00 05/10/25 11:00 05/10/25 11:00 05/10/25 11:00 05/10/25 11:00
I&O
05/09/25 05/10/25 05/11/25
06:59 06:59 06:59
Intake Total 4040.0 / 4190.0 2980 / 2980
Output Total 1000 / 1000 350 / 350
Balance 3040.0 / 3190.0 2630 / 2630
Review of Systems
-
History Source: Patient
All other systems: Not reviewed unless documented
Physical Exam
-
General: Well Developed, Well Nourished, No Apparent Distress and Appears Chronically Ill
HEENT: Normocephalic, Nose Appears Normal and Ears Appear Normal; Negative Good Dentition
Respiratory: Clear to Auscultation
Cardiac: Tachycardic
GI: Soft, Nontender and Nondistended
Musculoskeletal: No Clubbing, No Cyanosis and No Edema
Skin: Warm and Dry
Neuro: Negative Awake, Alert, Oriented or AO x 3
Psych: Confused
Data Reviewed
-
Diagnostic Radiology: Report Reviewed by me
CT Scan: Report Reviewed by me
Labs: Labs Reviewed by me
--- NOTE | 2025-05-10 12:09 | W.DS.TRANS ---
DC Summary - Orchestrator
-
Discharge Instructions:
Discharge Diagnosis/Procedures #Polysubstance Use Disorder with Withdrawal
Syndrome
Diet Low Cholesterol
Activity As tolerated
Blood Work cbc and bmp in 7 days
Instructions:
Stand-Alone Forms:
Changes to Home Medications: Yes
Discharge Medications:
DC Medications w/original date entered in [facility]
buprenorphine 8 mg-naloxone 2 mg sublingual film (Suboxone) 2 film sublingual DAILY #30 ea 05/10/25
clonidine HCl 0.2 mg tablet 0.2 mg PO TID #0 tabs 05/10/25
folic acid 1 mg tablet 1 mg PO DAILY #0 tabs 05/10/25
thiamine mononitrate (vit B1) 100 mg tablet 100 mg PO BID #0 tabs 05/10/25
Home Medication Changes
buprenorphine 8 mg-naloxone 2 mg sublingual film (Suboxone) 2 film sublingual DAILY #30 ea 05/10/25
clonidine HCl 0.2 mg tablet 0.2 mg PO TID #0 tabs 05/10/25
folic acid 1 mg tablet 1 mg PO DAILY #0 tabs 05/10/25
thiamine mononitrate (vit B1) 100 mg tablet 100 mg PO BID #0 tabs 05/10/25
Pending Results: No
[2025-05-10 15:00] VITALS: BP 127/79
== END 2025-05-10 15:23 | DRG 897 ==
LOC: 3 WEST ACU 06:29
PROVIDERS: Internal Medicine; Internal Medicine Critical Care Medicine; Psychiatry & Neurology Neurology; ADMITTING PHYSICIAN Hospitalist; ATTENDING PHYSICIAN Internal Medicine; CONSULT PHYSICIAN Internal Medicine; EMERGENCY PHYSICIAN Student in an Organized Health Care Education/Training Program
PROC: XX20X89 Monitoring of Brain Electrical Activity, Computer-aided Detection and Notification, New Technology Group 9 (ICD-10-PCS; 2025-05-08)
DX: F11.23 Opioid dependence with withdrawal (principal); R56.9 Unspecified convulsions; R54 Age-related physical debility; F17.200 Nicotine dependence, unspecified, uncomplicated; R94.31 Abnormal electrocardiogram [ECG] [EKG]; R00.8 Other abnormalities of heart beat; F10.20 Alcohol dependence, uncomplicated; R01.1 Cardiac murmur, unspecified; F14.90 Cocaine use, unspecified, uncomplicated; I10 Essential (primary) hypertension
CPT/HCPCS: 70450; 71045; 80048; 80053; 80076; 80143; 80179; 80306; 80307; 82077; 82248; 82550; 82805; 82962; 83735; 84100; 84443; 85025; 85027; 85610; 85730; 87040; 87070; 87086; 87147; 93005; 93306; 96361; 96374; 96376; 97162; 97166; 99291